=== PATIENT | female | born 1975 | race Caucasian/White ===

== ENCOUNTER 2018-11-15 07:09 | Emergency (ER) | payer BC ==
[~2018-11-15] VITALS: Ht 167.6 cm; Wt 92.0 kg
[2018-11-15] MEDS ORDERED: MORPHINE SULFATE 4 MG/ML CPJ (NOT FOR IM USE) IV STA (07:40)
[2018-11-15] MEDS ORDERED: SODIUM CHLORIDE 0.9% 1,000 ML IV ONE (07:40)
[2018-11-15] MEDS ORDERED: ONDANSETRON HCL 4MG/2ML INJ IV STA (07:40)
[2018-11-15 08:22] LABS: EOSINOPHILS % 0.4 % (0.0-5.0); HEMATOCRIT. 45.5 % (36.0-48.0); HEMOGLOBIN. 15.9 g/dL (12.0-16.0); LYMPHOCYTES % 28.5 % (20.0-50.0); MEAN CORPUSCULAR HEMOGLOBIN 31.4 pg (28.0-32.0); MEAN CORPUSCULAR VOLUME 90.2 fL (81.0-99.0); MEAN PLATELET VOLUME 7.7 fl (7.4-10.4); MONOCYTES % 5.4 % (2.0-8.0); NEUTROPHILS % 64.7 % (40.0-76.0); PLATELET 287 x1000/uL (130-400); RED BLOOD CELL COUNT 5.04 mill/uL (4.2-5.4); RED CELL DISTRIBUTION WIDTH 13.7 % (11.6-14.6)
[2018-11-15 08:29] LABS: CHLORIDE 107 mEq/L (98-107)
[2018-11-15] MEDS ORDERED: MORPHINE SULFATE 4 MG/ML CPJ (NOT FOR IM USE) IV ONE (08:30)
[2018-11-15 08:32] LABS: ETHANOL BLOOD 30 mg/dL
[2018-11-15 08:47] LABS: HCG SCREEN NEGATIVE
[2018-11-15 09:05] LABS: CLARITY URINE CLOUDY (CLEAR); COLOR URINE YELLOW (YELLOW); KETONES URINE TRACE (NEGATIVE); LEUKOCYTE ESTERASE URINE 1+ (NEGATIVE); NITRITE URINE NEGATIVE (NEGATIVE); OCCULT BLOOD URINE 3+ (NEGATIVE); PROTEIN URINE TRACE (NEGATIVE); SPECIFIC GRAVITY URINE 1.021 (1.005-1.030)
[2018-11-15 09:16] LABS: *AMPHETAMINES SCREEN URINE NEGATIVE (NEGATIVE); *BENZODIAZEPINES SCREEN URINE NEGATIVE (NEGATIVE); OPIATES URINE SCREEN NEGATIVE (NEGATIVE); PHENCYCLIDINE URINE SCREEN NEGATIVE (NEGATIVE)
[2018-11-15 09:17] LABS: *COCAINE SCREEN URINE NEGATIVE (NEGATIVE); METHADONE URINE SCREEN NEGATIVE (NEGATIVE)
[2018-11-15 09:18] LABS: *BARBITURATES SCREEN URINE NEGATIVE (NEGATIVE)
[2018-11-15 09:30] LABS: CANNABINOID URINE SCREEN PRESUMTIVE POSITIVE (NEGATIVE)
[2018-11-15] MEDS ORDERED: LEVOFLOXACIN 750MG PREMIX 150 ML IV ONE (10:00)
[2018-11-15 11:01] VITALS: BP 133/76
== END 2018-11-15 11:06 | disposition home or self-care (01) ==
LOC: ER 07:25
DX: K57.90 Diverticulosis of intestine, part unspecified, without perforation or abscess without bleeding (principal); N39.0 Urinary tract infection, site not specified; J45.909 Unspecified asthma, uncomplicated; K21.9 Gastro-esophageal reflux disease without esophagitis; I20.9 Angina pectoris, unspecified
CPT/HCPCS: 36415; 74176; 80053; 80305; 80320; 81003; 83690; 84703; 85025; 93005; 96361; 96374; 96375; 99284; J1956; J2270; J2405; J7030; Z7610; G0480

== ENCOUNTER 2018-12-30 15:47 | Inpatient (IN) | payer BC, MEDICAID ==
[~2018-12-30] VITALS: Ht 167.6 cm; Wt 108.4 kg
[2018-12-30] MEDS ORDERED: SODIUM CHLORIDE 0.9% 1,000 ML IV ONE (16:36)
[2018-12-30] MEDS ORDERED: FAMOTIDINE 20MG/2ML VIAL IV STA (16:36)
[2018-12-30] MEDS ORDERED: ONDANSETRON HCL 4MG/2ML INJ IV STA (16:36)
[2018-12-30] MEDS ORDERED: LORAZEPAM 2MG/ML CPJ IV ONE (16:45)
[2018-12-30] MEDS ORDERED: HALOPERIDOL LACTATE 5MG/ML VIAL IM ONE (17:30)
[2018-12-30 17:42] LABS: BASOPHILS % 0.4 % (0.0-2.0); EOSINOPHILS % 0.1 % (0.0-5.0); HEMOGLOBIN. 14.6 g/dL (12.0-16.0); LYMPHOCYTES % 14.4 % (20.0-50.0); MEAN CORPUSCULAR HEMOGLOBIN 30.5 pg (28.0-32.0); MEAN CORPUSCULAR VOLUME 90.2 fL (81.0-99.0); MEAN PLATELET VOLUME 8.2 fl (7.4-10.4); MONOCYTES % 4.6 % (2.0-8.0); NEUTROPHILS % 80.5 % (40.0-76.0); PLATELET 273 x1000/uL (130-400); RED BLOOD CELL COUNT 4.77 mill/uL (4.2-5.4); RED CELL DISTRIBUTION WIDTH 13.7 % (11.6-14.6)
[2018-12-30 17:49] LABS: CHLORIDE 107 mEq/L (98-107)
[2018-12-30 18:03] LABS: HCG SCREEN NEGATIVE
[2018-12-30] MEDS ORDERED: MORPHINE SULFATE 4 MG/ML CPJ (NOT FOR IM USE) IV ONE (18:30)
[2018-12-30 21:04] LABS: CLARITY URINE CLEAR (CLEAR); COLOR URINE YELLOW (YELLOW); KETONES URINE TRACE (NEGATIVE); LEUKOCYTE ESTERASE URINE TRACE (NEGATIVE); NITRITE URINE NEGATIVE (NEGATIVE); OCCULT BLOOD URINE 1+ (NEGATIVE); PROTEIN URINE NEGATIVE (NEGATIVE); SPECIFIC GRAVITY URINE 1.024 (1.005-1.030); UROBILINOGEN URINE 0.2 E.U./dL (0.2-1.0)
[2018-12-30 23:05] VITALS: BP 111/66
[2018-12-30] MEDS ORDERED: CLONIDINE 0.1MG TABLET PO PRN (23:30)
[2018-12-30] MEDS ORDERED: ACETAMINOPHEN 325MG TABLET PO PRN (23:30)
[2018-12-30] MEDS ORDERED: MAGNESIUM/ALUMINUM HYDROXIDE/SIMETHICONE 30ML UDC PO PRN (23:30)
[2018-12-30] MEDS ORDERED: HYDRALAZINE 20MG/ML VIAL IV PRN (23:30)
[2018-12-30] MEDS ORDERED: DIPHENHYDRAMINE 50MG/ML VIAL IV PRN (23:30)
[2018-12-30 23:34] VITALS: BP 111/66
[2018-12-31] MEDS: PANTOPRAZOLE SODIUM 40 MG/VIAL IV SCH ×3 (00:18→20:50)
[2018-12-31] MEDS: LORAZEPAM 2MG/ML CPJ IV PRN ×4 (00:18→17:35)
[2018-12-31] MEDS: ONDANSETRON HCL 4MG/2ML INJ IV PRN ×2 (00:18→12:14)
[2018-12-31] MEDS ORDERED: MORPHINE SULFATE 4 MG/ML CPJ (NOT FOR IM USE) IV PRN (00:45)
[2018-12-31] MEDS ORDERED: IPRATROPIUM/ALBUTEROL 0.5-3(2.5)MG/3ML NEB HHN PRN (00:45)
[2018-12-31] MEDS ORDERED: MVI, ADULT NO.1 10 ML, FOLIC ACID 1 MG, THIAMINE HCL 100 MG in SODIUM CHLORIDE 0.9% 1,0... IV SCH ×4 (01:00)
[2018-12-31 04:00] VITALS: BP 114/78
[2018-12-31 07:47] LABS: BASOPHILS % 0.6 % (0.0-2.0); EOSINOPHILS % 0.4 % (0.0-5.0); HEMATOCRIT. 38.3 % (36.0-48.0); HEMOGLOBIN. 13.2 g/dL (12.0-16.0); LYMPHOCYTES % 23.3 % (20.0-50.0); MEAN CORPUSCULAR HEMOGLOBIN 31.1 pg (28.0-32.0); MEAN CORPUSCULAR VOLUME 90.3 fL (81.0-99.0); MEAN PLATELET VOLUME 8.5 fl (7.4-10.4); MONOCYTES % 7.5 % (2.0-8.0); NEUTROPHILS % 68.2 % (40.0-76.0); PLATELET 226 x1000/uL (130-400); RED BLOOD CELL COUNT 4.24 mill/uL (4.2-5.4); RED CELL DISTRIBUTION WIDTH 13.7 % (11.6-14.6)
[2018-12-31 08:00] VITALS: BP 123/73
[2018-12-31 08:12] LABS: CHLORIDE 110 mEq/L (98-107)
[2018-12-31 08:25] LABS: PHOSPHORUS 2.9 mg/dL (2.5-4.9)
[2018-12-31] MEDS: BUDESONIDE 0.5MG/2ML NEB HHN SCH ×2 (11:48→20:20)
[2018-12-31 12:00] VITALS: BP 105/61
[2018-12-31] MEDS: DEXT 5%/0.45% NACL 1000ML 1,000 ML IV SCH ×2 (12:14→17:35)
[2018-12-31 16:00] VITALS: BP 127/62
[2018-12-31] MEDS ORDERED: MAGNESIUM 2 G PREMIX 50 ML IV SCH (16:00)
[2018-12-31] MEDS: MORPHINE SULFATE 2 MG/ML CPJ (NOT FOR IM USE) IV PRN (16:02)
[2018-12-31] MEDS ORDERED: POTASSIUM CHLORIDE INJ 40 MEQ in DEXT 5% WATER 250 ML IV SCH (17:00)
[2018-12-31 21:03] VITALS: BP 121/77
[2019-01-01 00:27] VITALS: BP 114/78
[2019-01-01] MEDS: MORPHINE SULFATE 2 MG/ML CPJ (NOT FOR IM USE) IV PRN ×3 (00:36→12:46)
[2019-01-01] MEDS: LORAZEPAM 2MG/ML CPJ IV PRN ×3 (01:41→16:48)
[2019-01-01 04:20] VITALS: BP 116/70
[2019-01-01] MEDS: DEXT 5%/0.45% NACL 1000ML 1,000 ML IV SCH (05:00)
[2019-01-01 08:00] VITALS: BP 109/76
[2019-01-01] MEDS: PANTOPRAZOLE SODIUM 40 MG/VIAL IV SCH (09:28)
[2019-01-01] MEDS: BUDESONIDE 0.5MG/2ML NEB HHN SCH (11:57)
[2019-01-01 12:00] VITALS: BP 120/72
[2019-01-01] MEDS: ONDANSETRON HCL 4MG/2ML INJ IV PRN (12:46)
[2019-01-01 14:01] LABS: BASOPHILS % 0.7 % (0.0-2.0); EOSINOPHILS % 0.9 % (0.0-5.0); HEMATOCRIT. 39.8 % (36.0-48.0); HEMOGLOBIN. 13.6 g/dL (12.0-16.0); LYMPHOCYTES % 31.7 % (20.0-50.0); MEAN CORPUSCULAR HEMOGLOBIN 30.8 pg (28.0-32.0); MEAN CORPUSCULAR VOLUME 89.7 fL (81.0-99.0); MEAN PLATELET VOLUME 8.6 fl (7.4-10.4); MONOCYTES % 6.6 % (2.0-8.0); NEUTROPHILS % 60.1 % (40.0-76.0); PLATELET 219 x1000/uL (130-400); RED BLOOD CELL COUNT 4.44 mill/uL (4.2-5.4); RED CELL DISTRIBUTION WIDTH 13.9 % (11.6-14.6)
[2019-01-01 14:08] LABS: CHLORIDE 106 mEq/L (98-107)
[2019-01-01 16:00] VITALS: BP 116/66
[2019-01-01] MEDS ORDERED: CEPH-569 MT (16:21)
[2019-01-01] MEDS ORDERED: PROT40 MT (16:21)
[2019-01-01 17:57] LABS: *AMPHETAMINES SCREEN URINE NEGATIVE (NEGATIVE); *BARBITURATES SCREEN URINE NEGATIVE (NEGATIVE); *BENZODIAZEPINES SCREEN URINE NEGATIVE (NEGATIVE); *COCAINE SCREEN URINE NEGATIVE (NEGATIVE)
[2019-01-01 17:58] LABS: METHADONE URINE SCREEN NEGATIVE (NEGATIVE); PHENCYCLIDINE URINE SCREEN NEGATIVE (NEGATIVE)
[2019-01-01 18:02] VITALS: BP 116/66
[2019-01-01 18:19] LABS: CANNABINOID URINE SCREEN PRESUMTIVE POSITIVE (NEGATIVE); OPIATES URINE SCREEN PRESUMTIVE POSITIVE (NEGATIVE)
== END 2019-01-01 20:29 | disposition home or self-care (01) | DRG 690 ==
LOC: ER 15:47 → 5WST 18:06 → ENRESERV 21:49 → 5WST 01-01 04:00
PROVIDERS: ADMIT Internal Medicine; ATTEND Internal Medicine
DX: N39.0 Urinary tract infection, site not specified (principal); J45.901 Unspecified asthma with (acute) exacerbation; F17.200 Nicotine dependence, unspecified, uncomplicated; K21.9 Gastro-esophageal reflux disease without esophagitis; Z98.891 History of uterine scar from previous surgery; K52.9 Noninfective gastroenteritis and colitis, unspecified; E66.9 Obesity, unspecified; F41.8 Other specified anxiety disorders; E86.0 Dehydration; E87.6 Hypokalemia; G89.29 Other chronic pain; F10.10 Alcohol abuse, uncomplicated; Z79.899 Other long term (current) drug therapy; Z79.51 Long term (current) use of inhaled steroids; Z68.38 Body mass index [BMI] 38.0-38.9, adult
CPT/HCPCS: 36415; 74176; 80305; 81003; 83605; 83735; 84100; 84703; 93970; 96374; 99285; C9113; J1200; J1630; J2060; J2270; J2405; J3411; J3475; J3480; J3490; J7030; J7060; J7620; J7626

== ENCOUNTER 2020-03-22 16:54 | Inpatient (IN) | payer BC ==
[~2020-03-22] VITALS: Ht 167.6 cm; Wt 108.0 kg
[~2020-03-22 16:54] MED LIST: CEPH-569 MT; PROT40 MT
[2020-03-22] MEDS ORDERED: MORPHINE SULFATE 4 MG/ML CPJ (NOT FOR IM USE) IV STA (17:17)
[2020-03-22] MEDS ORDERED: ONDANSETRON HCL 4MG/2ML INJ IV STA (17:17)
[2020-03-22] MEDS ORDERED: FAMOTIDINE 20MG/2ML VIAL IV STA (17:17)
[2020-03-22] MEDS ORDERED: SODIUM CHLORIDE 0.9% 1,000 ML IV ONE (17:30)
[2020-03-22] MEDS ORDERED: LORAZEPAM 2MG/ML CPJ IV ONE ×2 (17:30→20:00)
[2020-03-22 17:31] LABS: CLARITY URINE CLOUDY (CLEAR); COLOR URINE YELLOW (YELLOW); KETONES URINE TRACE (NEGATIVE); LEUKOCYTE ESTERASE URINE NEGATIVE (NEGATIVE); NITRITE URINE NEGATIVE (NEGATIVE); OCCULT BLOOD URINE TRACE (NEGATIVE); PH URINE 7.5 (4.5-8.0); PROTEIN URINE TRACE (NEGATIVE); SPECIFIC GRAVITY URINE 1.029 (1.005-1.030)
[2020-03-22 18:00] LABS: *AMPHETAMINES SCREEN URINE NEGATIVE (NEGATIVE); *BARBITURATES SCREEN URINE NEGATIVE (NEGATIVE); *BENZODIAZEPINES SCREEN URINE NEGATIVE (NEGATIVE); *COCAINE SCREEN URINE NEGATIVE (NEGATIVE); METHADONE URINE SCREEN NEGATIVE (NEGATIVE)
[2020-03-22 18:01] LABS: CANNABINOID URINE SCREEN PRESUMTIVE POSITIVE (NEGATIVE); OPIATES URINE SCREEN NEGATIVE (NEGATIVE); PHENCYCLIDINE URINE SCREEN NEGATIVE (NEGATIVE)
[2020-03-22 18:01] LABS: BASOPHILS % 0.4 % (0.0-2.0); HEMOGLOBIN. 15.7 g/dL (12.0-16.0); LYMPHOCYTES % 12.3 % (20.0-50.0); MEAN CORPUSCULAR HEMOGLOBIN 30.4 pg (28.0-32.0); MEAN CORPUSCULAR VOLUME 90.6 fL (81.0-99.0); MEAN PLATELET VOLUME 7.6 fl (7.4-10.4); MONOCYTES % 3.8 % (2.0-8.0); NEUTROPHILS % 83.5 % (40.0-76.0); PLATELET 278 x1000/uL (130-400); RED BLOOD CELL COUNT 5.18 mill/uL (4.2-5.4); RED CELL DISTRIBUTION WIDTH 13.9 % (11.6-14.6)
[2020-03-22 18:06] LABS: CHLORIDE 107 mEq/L (98-107)
[2020-03-22 18:08] LABS: PROTHROMBIN TIME 10.6 sec (9.6-11.0)
[2020-03-22 18:10] LABS: ETHANOL BLOOD < 10 mg/dL
[2020-03-22 18:12] LABS: HCG SCREEN NEGATIVE
[2020-03-22] MEDS ORDERED: IOHEXOL-350 100 ML BOTTLE ONE (23:28)
[2020-03-23 01:30] VITALS: BP 112/63
[2020-03-23] MEDS ORDERED: FAMO40TA70 MT (02:55)
[2020-03-23] MEDS ORDERED: LORA-250 MT (02:55)
[2020-03-23] MEDS ORDERED: ONDA4TAB5 MT (02:55)
[2020-03-23 03:18] LABS: BASOPHILS % 0.9 % (0.0-2.0); EOSINOPHILS % 0.1 % (0.0-5.0); HEMATOCRIT. 40.7 % (36.0-48.0); HEMOGLOBIN. 13.8 g/dL (12.0-16.0); LYMPHOCYTES % 18.7 % (20.0-50.0); MEAN CORPUSCULAR VOLUME 91.3 fL (81.0-99.0); MEAN PLATELET VOLUME 7.5 fl (7.4-10.4); NEUTROPHILS % 74.3 % (40.0-76.0); PLATELET 241 x1000/uL (130-400); RED BLOOD CELL COUNT 4.45 mill/uL (4.2-5.4); RED CELL DISTRIBUTION WIDTH 14.1 % (11.6-14.6)
[2020-03-23 03:19] LABS: CHLORIDE 105 mEq/L (98-107)
[2020-03-23] MEDS: MORPHINE SULFATE 2 MG/ML CPJ (NOT FOR IM USE) IV PRN ×4 (03:38→18:05)
[2020-03-23] MEDS: ONDANSETRON HCL 4MG/2ML INJ IV PRN ×2 (03:41→13:10)
[2020-03-23] MEDS: DEXT 5%/0.45% NACL 1000ML 1,000 ML IV SCH ×3 (03:47→23:12)
[2020-03-23] MEDS: PIPERACILLIN/TAZOBACTAM 3.375 G in DEXT 5% WATER 100 ML IV SCH ×5 (03:47→23:12)
[2020-03-23 04:00] VITALS: BP 139/74
[2020-03-23] MEDS ORDERED: PIPERACILLIN/TAZOBACTAM 3.375 G/VIAL IV SCH (06:00)
[2020-03-23] MEDS: PANTOPRAZOLE 40MG DR TABLET PO SCH (07:15)
[2020-03-23] MEDS ORDERED: PANTOPRAZOLE SODIUM 40 MG/VIAL IV SCH (09:00)
[2020-03-23] MEDS: LORAZEPAM 2MG/ML CPJ IV PRN ×2 (11:06→19:48)
[2020-03-23] MEDS ORDERED: ALBUTEROL 6.7GM HFA INHALER ORI PRN (18:30)
[2020-03-23] MEDS ORDERED: DIPHENHYDRAMINE 50MG/ML VIAL IV PRN (18:30)
[2020-03-23] MEDS ORDERED: CLONIDINE 0.1MG TABLET PO PRN (18:30)
[2020-03-23] MEDS ORDERED: HYDROCODONE/ACETAMINOPHEN 5/325MG TABLET PO PRN (18:30)
[2020-03-23] MEDS: THIAMINE HCL 100MG TABLET PO SCH (19:48)
[2020-03-23] MEDS: MULTIVITAMINS,THER W-MINERALS TABLET PO SCH (19:48)
[2020-03-23] MEDS: NICOTINE 7MG PATCH TD SCH (19:48)
[2020-03-23] MEDS: FOLIC ACID 1MG TABLET PO SCH (19:48)
[2020-03-23] MEDS ORDERED: LACTULOSE 20G/30ML UDC PO PRN (21:00)
[2020-03-23] MEDS: ENOXAPARIN 30MG/0.3ML SYR SUBCUT SCH (23:13)
[2020-03-24] VITALS: BP 121/79
[2020-03-24 04:00] VITALS: BP 133/81
[2020-03-24] MEDS: PIPERACILLIN/TAZOBACTAM 3.375 G in DEXT 5% WATER 100 ML IV SCH ×3 (05:22→11:33)
[2020-03-24] MEDS: PANTOPRAZOLE 40MG DR TABLET PO SCH (07:19)
[2020-03-24 07:51] LABS: BASOPHILS % 0.9 % (0.0-2.0); EOSINOPHILS % 0.5 % (0.0-5.0); HEMATOCRIT. 39.9 % (36.0-48.0); HEMOGLOBIN. 13.6 g/dL (12.0-16.0); LYMPHOCYTES % 31.5 % (20.0-50.0); MEAN CORPUSCULAR HEMOGLOBIN 30.8 pg (28.0-32.0); MEAN CORPUSCULAR VOLUME 90.7 fL (81.0-99.0); MEAN PLATELET VOLUME 8.1 fl (7.4-10.4); MONOCYTES % 6.2 % (2.0-8.0); NEUTROPHILS % 60.9 % (40.0-76.0); PLATELET 208 x1000/uL (130-400); RED CELL DISTRIBUTION WIDTH 13.8 % (11.6-14.6)
[2020-03-24 08:00] VITALS: BP 103/66
[2020-03-24 08:04] LABS: CHLORIDE 106 mEq/L (98-107)
[2020-03-24] MEDS: MULTIVITAMINS,THER W-MINERALS TABLET PO SCH (08:52)
[2020-03-24] MEDS: THIAMINE HCL 100MG TABLET PO SCH (08:52)
[2020-03-24] MEDS: FOLIC ACID 1MG TABLET PO SCH (08:52)
[2020-03-24] MEDS: LORAZEPAM 2MG/ML CPJ IV PRN (08:52)
[2020-03-24] MEDS: NICOTINE 7MG PATCH TD SCH (08:59)
[2020-03-24] MEDS: ENOXAPARIN 30MG/0.3ML SYR SUBCUT SCH (09:08)
[2020-03-24] MEDS: DEXT 5%/0.45% NACL 1000ML 1,000 ML IV SCH (09:09)
[2020-03-24] MEDS: MORPHINE SULFATE 2 MG/ML CPJ (NOT FOR IM USE) IV PRN (10:21)
[2020-03-24] MEDS ORDERED: POTASSIUM CHLORIDE 20MEQ TABLET SR PO NR (10:30)
[2020-03-24 12:00] VITALS: BP 132/78
[2020-03-24] MEDS ORDERED: FOLI-43 MT (12:25)
[2020-03-24] MEDS ORDERED: PROT40 MT (12:25)
[2020-03-24] MEDS ORDERED: THIA100T88 MT (12:25)
[2020-03-24] MEDS ORDERED: MULT-1146 MT (12:25)
[2020-03-24] MEDS ORDERED: LEVO500T2 MT (12:25)
[2020-03-24] MEDS ORDERED: NICO-645 TP (12:25)
[2020-03-24 13:33] VITALS: BP_SYST 100; BP_SYST 117; BP_DIAS 62; BP_DIAS 84
[2020-03-24 16:00] VITALS: BP 117/84
== END 2020-03-24 17:00 | disposition home or self-care (01) | DRG 690 ==
LOC: ER 16:54 → 6EST 22:23 → ENRESERV 23:39 → 6EST 03-23 12:02
PROVIDERS: ADMIT Internal Medicine; ATTEND Internal Medicine
DX: N39.0 Urinary tract infection, site not specified (principal); K52.9 Noninfective gastroenteritis and colitis, unspecified; K57.90 Diverticulosis of intestine, part unspecified, without perforation or abscess without bleeding; Z20.822 Contact with and (suspected) exposure to COVID-19; D25.9 Leiomyoma of uterus, unspecified; E66.9 Obesity, unspecified; F10.10 Alcohol abuse, uncomplicated; F32.9 Major depressive disorder, single episode, unspecified; F41.9 Anxiety disorder, unspecified; I10 Essential (primary) hypertension; J45.909 Unspecified asthma, uncomplicated; F17.210 Nicotine dependence, cigarettes, uncomplicated; K21.9 Gastro-esophageal reflux disease without esophagitis; K29.20 Alcoholic gastritis without bleeding; K76.0 Fatty (change of) liver, not elsewhere classified; Z82.49 Family history of ischemic heart disease and other diseases of the circulatory system; Z98.891 History of uterine scar from previous surgery; Z88.8 Allergy status to other drugs, medicaments and biological substances
CPT/HCPCS: 36415; 71045; 74177; 76830; 76856; 80053; 80305; 80320; 81003; 84703; 85025; 87426; 93005; 96374; 99291; J1650; J2060; J2270; J2405; J2543; J3490; J7030; J7060; Q9967; G0480